=== PATIENT | female | born 2000 | race Two or more races ===

== ENCOUNTER 2024-06-16 10:26 | Emergency (ER) | payer OTHER, SELFPAY ==
[2024-06-16 10:50] VITALS: BP 141/83; PULSE 90; RESP 19; TEMP 36.9; O2SAT 97
--- NOTE | 2024-06-16 10:51 | PD.EDRME ---
Rapid Medical Screening Exam RME Arrival date/time: 06/16/24 10:26 Chief Complaint: Dental/Oral/Throat Time Seen by Provider: 06/16/24 10:39 Vital signs reviewed by provider: Yes RME Narrative: 24-year-old female presents for evaluation of persistent gingival bleeding x 24 hours. Patient was receiving a routine cleaning at her dentist office when she started bleeding at the gums above her right frontal tooth. Patient reports persistent oozing of blood since that time. She endorses some dizziness and palpitations today.
[2024-06-16] MEDS: ACETAMINOPHEN 325 MG TABLET 650 MG PO (11:21)
[2024-06-16 11:22] VITALS: BMI 30.7
[2024-06-16 11:22] LABS: Basophils % (Auto) 1 % (0-2.5); Eosinophils # (Auto) 0.2 Thou/mm3 (0.0-0.5); Eosinophils % (Auto) 3 % (0-10); Hematocrit 43.7 % (36.0-46.0); Hemoglobin 14.8 g/dL (12.0-16.0); Immature Granulocytes % (Auto) 0 % (0-0); Immature Granulocytes Auto 0.02 Thou/mm3 (0.00-0.00); Lymphocytes # (Auto) 3.5 Thou/mm3 (1.0-4.8); Lymphocytes % (Auto) 41 % (10-50); Mean Corpuscular HGB Conc 33.9 g/dl (31.0-37.0); Mean Corpuscular Volume 86 fL (80-100); Monocytes # (Auto) 0.6 Thou/mm3 (0.0-0.8); Monocytes % (Auto) 7 % (0-12); Neutrophils # (Auto) 4.2 Thou/mm3 (1.8-7.7); Neutrophils % (Auto) 50 % (37-80); Nucleated Red Blood Cell % 0 /100 WBC (0); Platelet Count 330 Thou/mm3 (140-440); RDW Standard Deviation 39.3 fL (36.4-46.3); Red Blood Count 5.11 Miln/mm3 (4.00-5.20); White Blood Count 8.6 Thou/mm3 (3.6-11.0)
[2024-06-16 11:24] LABS: HCG Qualitative,Urine Negative
[2024-06-16 11:29] LABS: Partial Thromboplastin Time 29.1 Seconds (22.0-36.0); Prothrombin Time 11.3 Seconds (9.0-12.2)
[2024-06-16 11:32] LABS: Alanine Aminotransferase 44 U/L (10-49); Albumin, Serum 4.9 gm/dL (3.5-5.0); Albumin/Globulin Ratio 1.6 (1.2-2.2); Alkaline Phosphatase 62 U/L (46-116); Anion Gap 9 (7-16); Aspartate Amino Transferase 22 U/L (0-34); BUN/Creatinine Ratio 14 Ratio (12-20); Bilirubin,Total 0.5 mg/dL (0.3-1.2); Blood Urea Nitrogen 10 mg/dL (9-23); Calcium 9.9 mg/dL (8.3-10.6); Calcium (Corrected) 9.9 mg/dL (8.5-10.1); Carbon Dioxide 20.8 mMol/L (20.0-31.0); Chloride 108 mMol/L (98-107); Creatinine (Component) 0.7 mg/dL (0.6-1.3); Glucose 93 mg/dL (74-106); Osmolality,Calculated 274 (275-295); Potassium 3.9 mMol/L (3.4-5.1); Sodium 138 mMol/L (136-145); Total Protein 7.9 gm/dL (5.7-8.2); eGFR > 60 See Note
[2024-06-16] MEDS: TRANEXAMIC ACID INJ 1,000 MG/10 ML VIAL 10 MG PO (14:09)
--- NOTE | 2024-06-16 14:50 | PD.EDDENTL ---
ED Dental RME/HPI General Chief complaint: Dental/Oral/Throat Stated complaint: dental bleeding. was told to come in for txa Time Seen by Provider: 06/16/24 10:39 Arrival date/time: 06/16/24 10:26 Limitations: no limitations RME / HPI RME / HPI Narrative: 24-year-old female presents for evaluation of persistent gingival bleeding x 24 hours. Patient was receiving a routine cleaning at her dentist office when she started bleeding at the gums above her right frontal tooth. Patient reports persistent oozing of blood since that time. She endorses mild dizziness and palpitations x3 hrs. patient is denies history of persistent postprocedural bleeding. Denies chest pain, nausea, vomiting, abdominal pain, headache. Onset (ago): hour(s) Duration: constant Relieving factors: nothing Exacerbating factors: nothing Treatment prior to arrival: none Related Data Allergies Allergy/AdvReac Type Severity Reaction Status Date / Time amoxicillin Allergy Rash Verified 06/16/24 10:27 Review of Systems Constitutional Constitutional: Denies chills, Denies fatigue, Denies fever(s), Denies headache(s) and Denies weakness Eyes Eyes: Denies blurry vision and Denies change in vision ENT Ears, Nose, Mouth, and Throat: Reports bleeding gums (Focal to frontal tooth.), Denies dental pain, Reports dizziness, Denies facial pain, Denies headache(s), Denies mouth pain and Denies neck pain Cardiovascular Cardiovascular: Denies chest pain and Denies dyspnea Respiratory Respiratory: Denies cough and Denies dyspnea Gastrointestinal Gastrointestinal: Denies nausea and Denies vomiting Musculoskeletal Musculoskeletal: Denies back pain, Denies myalgias and Denies neck pain Integumentary/Breasts Skin/Breast: Denies non-healing lesions Neurologic Neurologic: Reports dizziness, Denies headache(s) and Denies weakness Endocrine Endocrine: Denies fatigue Hematologic/Lymphatic Hematologic/Lymphatic: Reports as per HPI, Denies easy bleeding and Denies easy bruising Past Medical History Social History SMOKING STATUS: Never smoker ED Exam General Limitations: Present no limitations General appearance: Present alert and in no apparent distress Expanded Head Exam Head exam physical: Absent Mayers's sign Eye Eye exam: Present normal appearance and EOMI Expanded ENT Exam Mouth exam: Present tongue normal Teeth exam: Present other (Active oozing bleed at gumline tooth #9.); Absent dental tenderness # Throat exam: Present normal inspection Neck Neck exam: Present normal inspection and full ROM Chest Chest inspection: Present normal inspection and symmetric chest wall rise Respiratory Respiratory exam: Present normal lung sounds bilaterally; Absent respiratory distress or wheezes Cardiovascular Cardiovascular exam: Present regular rate, +S1 and +S2 Abdominal Exam Abdominal exam: Present soft; Absent distention Extremities Exam Extremities exam: Present normal inspection and full ROM Back Exam Back exam: Present normal inspection and full ROM Neurological Exam Neurological exam: Present alert Psychiatric Psychiatric exam: Present normal affect Skin Skin exam: Present warm, dry and normal color Course Quality Measures none Orders Category Date Time Status CBC Stat Lab 06/16/24 11:03 Completed CMP [Comprehensive Metabolic Panel] Stat Lab 06/16/24 11:03 Completed HCG Qualitative,Urine Stat Lab 06/16/24 11:03 Completed PT [Prothrombin Time with INR] Stat Lab 06/16/24 11:03 Completed PTT [Partial Thromboplastin Time] Stat Lab 06/16/24 11:03 Completed Type and Screen Stat Lab 06/16/24 11:03 Completed Acetaminophen Tab [Tylenol Tab] Med 06/16/24 10:50 Discontinued 650 mg PO X1 ONE Tranexamic Acid Inj Med 06/16/24 12:53 Discontinued 10 mg IV X1 ONE Tranexamic Acid Inj Med 06/16/24 14:05 Discontinued 10 mg PO X1 ONE Vital Signs Vital signs: Vital Signs Temperature 98.5 F 06/16/24 10:50 Pulse Rate 90 06/16/24 10:50 Respiratory Rate 19 06/16/24 10:50 Blood Pressure 141/83 H 06/16/24 10:50 Pulse Oximetry (%) 97 06/16/24 10:50 Oxygen Delivery Method Room Air 06/16/24 10:50 Pulse ox 97% on room air, within normal limits. Dental / Oral MDM Narrative MDM Narrative:: 24-year-old female presents with persistent gingival bleeding following a routine dental cleaning at 10 AM yesterday. Vital signs reassuring as patient is not tachycardic and oxygenating well on room air. Physical exam significant for oozing, bleed at the gingival line of tooth #9 without pulsatile consistency. Fortunately no anemia seen on CBC. Less concern for gross hemorrhage given patient is not tachycardic and stable in the department. Oral TXA was applied topically 4 x 2 minutes which patient tolerated well. Ultimately patient was discharged home with plan to follow-up with primary care tomorrow for reevaluation and further testing. I discussed with the patient need for possible outpatient workup for bleeding disorder. Patient was stable at time of discharge. Patient data External records reviewed:: [facility] previous records Clinical information provided by:: patient Social determinants that could affect healthcare access:: none Patient has the following chronic illnesses:: None reported. How is presenting disease/condition affected by chronic disease/condition?: no chronic disease Evaluation data The following diagnostics were reviewed and interpreted by me:: lab results Lab and/or radiology exams considered but not ordered:: Considered not ordered. Interpretation Summary: No anemia on CBC. PT and PTT within normal limits. Medications / Prescriptions Medications or Prescriptions considered but not ordered:: Rx given. Medication administrations:: Medication Administration History Discontinued Medications Acetaminophen (Acetaminophen 325 Mg Tablet) 650 mg PO X1 ONE Stop: 06/16/24 10:51 Last Admin: 06/16/24 11:21 Dose: 650 mg Documented By: ED Tranexamic Acid (Tranexamic Acid Inj 1,000 Mg/10 Ml Vial) 10 mg IV X1 ONE Stop: 06/16/24 12:54 Last Admin: 06/16/24 14:07 Dose: Not Given Documented By: DD Non-Admin Reason: Other, see note Comments: MED ORDER MODIFIED Tranexamic Acid (Tranexamic Acid Inj 1,000 Mg/10 Ml Vial) 10 mg PO X1 ONE Stop: 06/16/24 14:06 Last Admin: 06/16/24 14:09 Dose: 10 mg Documented By: DD Rx given. Consultations Consultation(s) initiated? (list below): No Diagnosis Dental Differential Diagnosis: dental caries, toothache, dental abscess, fracture of tooth and other (Gingival bleed.) Most likely diagnosis given after review of the tests above:: Gingival bleed. Admission Indicated Admission indicated?: not indicated Admission Request Was there a request for admission?: No Disposition Plan Disposition Plan: Discharge Discharge Attestation Discharge Attestation: The patient and all family members were given an opportunity to ask questions and understood the discharge instructions. Discharge instructions specifically effects, indications for sooner follow up or return to the emergency department, and the expected course of current diagnosis. Patient condition: Stable Discharge Plan Plan Patient Disposition: HOME (Self Care) Disposition Comment: stable Prescriptions/Referrals Referrals: Sabrina Shah PA-C [Primary Care Provider] - In 1 week Problem List Clinical Impression: Gingival bleeding Patient/Caregiver Discharge Instructions Other Activity Instructions:: Do not eat or drink for x 1 hour following TXA administration in the ED. Follow-up with primary care tomorrow regarding persistent bleeding of gums for further evaluation and workup. Return to the ED if your symptoms worsen or change. Print Language: Albanian Stand Alone Forms: Mouna Award Info., Patient Portal Info Letter PA/TRACEE Supervising Physician MAYITO/TRACEE Supervising Physician: Dr. Omalley
[2024-06-16 15:12] VITALS: BP 138/86; PULSE 84; RESP 20; TEMP 37; O2SAT 100
== END 2024-06-16 15:14 | disposition home or self-care (01) ==
PROVIDERS: Physician Assistant; Emergency Provider Emergency Medicine; PCP Physician Assistant
DX: K06.8 Other specified disorders of gingiva and edentulous alveolar ridge (principal)
CPT/HCPCS: 36415; 80053; 81025; 85025; 85610; 85730; 86850; 86900; 86901; 99283; J3490; A9270

== ENCOUNTER → 2024-06-18 | Outpatient (CLI) | payer OTHER, SELFPAY ==
--- NOTE | 2024-06-18 11:00 | XR_ITS ---
Examination: Breast ultrasound complete, bilateral Date and time of exam: June 18, 2024 at 1051 hours INDICATIONS: Patient states right breast lump lower outer quadrant left breast lump lower inner quadrant noticed beginning 3 months ago, family history breast cancer Technique: Real-time grayscale ultrasonographic imaging bilateral breasts, including all 4 quadrants as well as nipple retroareolar and axillary regions. Findings: Sonographic images right and left breast demonstrated no cystic or solid masses IMPRESSION: BI-RADS Category 1: Negative study
== END | disposition home or self-care (01) ==
LOC: CDIM 10:37
PROVIDERS: PCP Physician Assistant; Referring Provider Physician Assistant; Visit Provider Physician Assistant
DX: N63.20 Unspecified lump in the left breast, unspecified quadrant (principal); N63.10 Unspecified lump in the right breast, unspecified quadrant; Z80.3 Family history of malignant neoplasm of breast
CPT/HCPCS: 76641

== ENCOUNTER 2025-07-05 17:58 | Emergency (ER) | payer OTHER, SELFPAY ==
[2025-07-05 18:04] VITALS: BMI 32.3
[2025-07-05 18:15] VITALS: BP 134/87; PULSE 89; RESP 18; TEMP 36.8; O2SAT 98
--- NOTE | 2025-07-05 18:22 | EDNOTE_ITS ---
ED Abdominal Pain RME/HPI General Chief Complaint: Abdominal Pain Stated complaint: HIGH BP AT HOME; 19 WKS OB; UPPER MID ABD PAIN Time seen by provider: 07/05/25 18:29 Arrival date/time: 07/05/25 17:58 RME / HPI RME / HPI narrative: See [facility] for Dr. Garcia's HPI Documentation. Related Data Previous Rx's ?Medication ?Instructions ?Recorded cefdinir 300 mg capsule 300 mg PO BID #14 caps 07/05 ondansetron 4 mg disintegrating 4 mg PO TID PRN nausea and 07/05/25 tablet vomiting 30 days #30 tabs Allergies Allergy/AdvReac Type Severity Reaction Status Date / Time amoxicillin Allergy Rash Verified 07/05/25 18:07 Review of Systems Review of Systems Systems Reviewed: All systems reviewed, normal except as documented ED Exam Narrative Physical exam: See [facility] for Dr. Garcia's Physical Exam Documentation. Course Quality Measures none Orders Category Date Time Status EKG (ED ONLY) *Do not use* NOW Care 07/05/25 18:33 Completed Saline [Insert IV] NOW Care 07/05/25 18:32 Completed Straight [In and Out Catheter] X1 Care 07/05/25 18:32 Completed EKG (ED Only) Stat Exams 07/05/25 18:33 Draft US OB >= 14 weeks Fetus Stat Exams 07/05/25 18:33 Completed Amylase Stat Lab 07/05/25 18:55 Completed Beta HCG,Quantitative Stat Lab 07/05/25 18:55 Completed Bilirubin,Direct Stat Lab 07/05/25 18:55 Completed CBC Stat Lab 07/05/25 18:55 Completed CMP [Comprehensive Metabolic Panel] Stat Lab 07/05/25 18:55 Completed Lipase Stat Lab 07/05/25 18:55 Completed Magnesium Stat Lab 07/05/25 18:55 Completed TSH [Thyroid Stimulating Hormone] Stat Lab 07/05/25 18:55 Completed UA, C/S IF [Urinalysis, C/S if Indicated] Stat Lab 07/05/25 19:49 Completed Urine Culture Stat Lab 07/05/25 19:49 Received Ondansetron Inj [Zofran Inj] Med 07/05/25 18:32 Discontinued 4 mg IVP X1 ONE Ringers Lactated 1000 ml [Lactated Ringers] 1,000 ml Med 07/05/25 20:34 Discontinued IV 1,000 mls/hr Sodium Chloride 0.9% 1000 ml [Ns] 1,000 ml Med 07/05/25 18:32 Discontinued IV 999 mls/hr cefTRIAXone/D5w 1gm IV premix [Rocephin/D5w 1gm IV Med 07/05/25 20:33 Discontinued premix] 1 gm in 50 ml IV X1 Vital Signs Vital signs: Vital Signs Temperature 98.2 F 07/05/25 18:15 Pulse Rate 89 07/05/25 18:15 Respiratory Rate 18 07/05/25 18:15 Blood Pressure 134/87 H 07/05/25 18:15 Pulse Oximetry (%) 98 07/05/25 18:15 Oxygen Delivery Method Room Air 07/05/25 18:15 Abdominal Pain MDM MDM Narrative MDM Narrative:: This section includes all my notes and documentations, including HPI, PE, and ED course. Christopher Garcia MD HPI: 25 y/o EGA 19 weeks here with a few days of pelvic pain and decreased movement and headache and fatigue and malaise. And nausea with decreased oral intake. No vaginal bleeding. No other complaints. ROS: All negative except as documented in HPI. Physical Exam: General:? Alert and oriented.? No acute distress.?? Eyes:? Conjunctivae and lids clear.? EOMI.? PERRL. ENT:? No nasal congestion.? Pharynx normal.? Tympanic membrane normal bilaterally.??? Neck:? Supple.? Heart:? RRR.? Lungs:? No respiratory distress.? Good air movement.? No rhonchi, wheezing, rales.?? Abdomen:? Soft and nontender.? Normal bowel sounds.? No distension.? No rebound or guarding.?? Back:? No CVA tenderness.?? Legs:? No clubbing, cyanosis, edema.? Skin:? Warm and dry.?? Neuro:? Alert and oriented X 3.? Cranial Nerves II-XII grossly intact.? No peripheral motor deficits. I reviewed all diagnostic test results: My interpretation of the EKG: NSR (96 bpm) with no ST-T changes. My review of the US report is 19 3/7 week IUP. Blood tests remarkable for beta-hCG 12,296. UA remarkable for 1+ bacteria. At this point, diagnoses include: UTI Second Trimester Treatment here included: IVF Zofran 4 mg Rocephin 1 G IV She felt much better. Recommended outpatient care. Based on my best medical judgment, made decision no further evaluation or treatment indicated at this time. Patient understands and agrees to the discharge instructions customized and printed, see below. Discharge instructions from Dr. Garcia: 1. After evaluation, you have UTI (see attached handout). The baby is doing well. 2. Take cefdinir to kill the germs causing the infection. 3. For good hydration, increase oral fluid and maintain clear urine. If dark o r yellow, increase oral fluid. Zofran for nausea/vomiting. 4. See your customer solutions coordinator on 07/08/2025 for recheck. Ask to check the final urine culture results from today to make sure cefdinir doesn't need to be changed due to resistance. 5. Seek immediate medical care with worsening, fever, or with any concerns. Christopher Garcia MD Patient data External records reviewed:: [facility] previous records (Reviewed prior ED records from 06/16/24. Patient was seen for Gingival bleeding.) Clinical information provided by:: patient Social determinants that could affect healthcare access:: none Patient has the following chronic illnesses:: None reported How is presenting disease/condition affected by chronic disease/condition?: no chronic disease Evaluation data The following diagnostics were reviewed and interpreted by me:: lab results, radiology exam(s) and EKG tracing(s) (My interpretation of the EKG: NSR (96 bpm) with no ST-T changes. Christopher Garcia MD) Lab and/or radiology exams considered but not ordered:: None Interpretation Summary: I reviewed all diagnostic test results: My interpretation of the EKG: NSR (96 bpm) with no ST-T changes. My review of the US report is 19 3/7 week IUP. Blood tests remarkable for beta-hCG 12,296. UA remarkable for 1+ bacteria. Medications / Prescriptions Medications or Prescriptions considered but not ordered:: None Medication administrations:: Medication Administration History Discontinued Medications Sodium Chloride (Ns) 1,000 mls @ 999 mls/hr IV .Q1H1M ONE Stop: 07/05/25 19:32 Last Infusion: 07/05/25 20:40 Dose: Infused Documented By: Admin: 07/05/25 19:39 Dose: 999 mls/hr Documented By: MERARI Ceftriaxone Sodium/Dextrose (Rocephin/D5w 1gm Iv Premix) 1 gm in 50 mls @ 100 mls/hr IV X1 ONE Stop: 07/05/25 21:02 Last Infusion: 07/05/25 22:25 Dose: Infused Documented By: Admin: 07/05/25 21:37 Dose: 100 mls/hr Documented By: MERARI Lactated Ringer's (Lactated Ringers) 1,000 mls @ 1,000 mls/hr IV .Q1H ONE Stop: 07/05/25 21:33 Last Infusion: 07/05/25 22:37 Dose: Infused Documented By: Admin: 07/05/25 21:37 Dose: 1,000 mls/hr Documented By: MERARI Ondansetron HCl (Ondansetron Inj 2 Mg/Ml Inj 2 Ml) 4 mg IVP X1 ONE; Protocol Stop: 07/05/25 18:33 Last Admin: 07/05/25 19:40 Dose: 4 mg Documented By: MERARI Treatment here included: IVF Zofran 4 mg Rocephin 1 G IV Consultations Consultation(s) initiated? (list below): No Diagnosis Differential diagnosis abdominal pain: constipation, gastroenteritis, pancreatitis, small bowel obstruction and other (UTI, miscarriage) Most likely diagnosis given after review of the tests above:: UTI Second Trimester Admission Indicated Admission indicated?: not indicated Explain why admission is indicated or not indicated:: With significant improvement and no condition needing emergent intervention, there was no indication for admission. Admission Request Was there a request for admission?: No Disposition Plan Disposition Plan: Discharge Discharge Attestation Discharge Attestation: The patient and all family members were given an opportunity to ask questions and understood the discharge instructions. Discharge instructions specifically effects, indications for sooner follow up or return to the emergency department, and the expected course of current diagnosis. Patient condition: Stable Discharge Plan Plan Patient Disposition: HOME (Self Care) Prescriptions/Referrals Prescriptions/Med Rec: New ondansetron 4 mg tablet,disintegrating 4 mg PO TID PRN (Reason: nausea and vomiting) 30 Days Qty: 30 0RF cefdinir 300 mg capsule 300 mg PO BID Qty: 14 0RF Referrals: No Primary/Family,Physician [Primary Care Provider] - In 1 week Problem List Clinical Impression: Second trimester , UTI (urinary tract infection) Patient/Caregiver Discharge Instructions Discharge Activity: activity as tolerated Education Materials: Preg 2nd Trimester, ED CYSTITIS Female Adult Additional Instructions: Discharge instructions from Dr. Garcia: 1. After evaluation, you have UTI (see attached handout). The baby is doing well. 2. Take cefdinir to kill the germs causing the infection. 3. For good hydration, increase oral fluid and maintain clear urine. If dark or yellow, increase oral fluid. Zofran for nausea/vomiting. 4. See your customer solutions coordinator on 07/08/2025 for recheck. Ask to check the final urine culture results from today to make sure cefdinir doesn't need to be changed due to resistance. 5. Seek immediate medical care with worsening, fever, or with any concerns. Print Language: Amharic Stand Alone Forms: Mouna Award Info., Patient Portal Info Letter
--- NOTE | 2025-07-05 18:33 | EKG_ITS ---
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
--- NOTE | 2025-07-05 18:33 | XR_ITS ---
Examination: Complete OB ultrasound greater than 14 weeks Date and time of exam: July 05, 2025, 2054 hours INDICATIONS: Pelvic pain today Findings: Viable intrauterine single fetus with single amniotic sac presentation variable Cardiac motion 149 bpm Placenta posterior grade 1 Umbilical cord insertion seen Amniotic fluid index 11.9 cm spine posterior Cervix 3.6 cm Ovaries obscured by patient movement. Composite estimated gestational age based on BPD, head circumference, abdominal circumference, femur length is 19 weeks 3 days Estimated weight 2903 g. Survey of intracranial anatomy, spinal anatomy, abdominal anatomy, four-chamber heart performed with no abnormalities identified. Impression: Viable intrauterine gestation in variable presentation Estimated gestational age 19 weeks 3 days.
[2025-07-05 19:21] LABS: Basophils # (Auto) 0.0 Thou/mm3 (0.0-0.2); Basophils % (Auto) 0 % (0-2.5); Eosinophils # (Auto) 0.3 Thou/mm3 (0.0-0.5); Eosinophils % (Auto) 3 % (0-10); Hematocrit 37.7 % (36.0-46.0); Hemoglobin 13.1 g/dL (12.0-16.0); Immature Granulocytes Auto 0.05 Thou/mm3 (0.00-0.00); Lymphocytes # (Auto) 2.4 Thou/mm3 (1.0-4.8); Lymphocytes % (Auto) 22 % (10-50); Mean Corpuscular HGB Conc 34.7 g/dl (31.0-37.0); Mean Corpuscular Hemoglobin 29.5 pg (25.0-35.0); Mean Corpuscular Volume 85 fL (80-100); Monocytes # (Auto) 0.8 Thou/mm3 (0.0-0.8); Monocytes % (Auto) 7 % (0-12); Neutrophils # (Auto) 7.3 Thou/mm3 (1.8-7.7); Neutrophils % (Auto) 67 % (37-80); Nucleated Red Blood Cell # 0.00 Thou/mm3 (0.00-0.00); Nucleated Red Blood Cell % 0 /100 WBC (0); Platelet Count 259 Thou/mm3 (140-440); RDW Standard Deviation 38.8 fL (36.4-46.3); Red Blood Count 4.44 Miln/mm3 (4.00-5.20); White Blood Count 10.9 Thou/mm3 (3.6-11.0)
[2025-07-05 19:25] VITALS: BP 131/88; PULSE 98; RESP 18; TEMP 37.1; O2SAT 95
[2025-07-05] MEDS: SODIUM CHLORIDE 0.9% 1000 ML 1,000 ML 999 ML IV (19:39)
[2025-07-05] MEDS: ONDANSETRON INJ 2 MG/ML INJ 2 ML 4 MG IVP (19:40)
[2025-07-05 19:55] LABS: Collection Type, Urine Clean Catch
[2025-07-05 19:55] LABS: Alanine Aminotransferase 16 U/L (10-49); Albumin, Serum 4.3 gm/dL (3.5-5.0); Albumin/Globulin Ratio 1.6 (1.2-2.2); Alkaline Phosphatase 61 U/L (46-116); Amylase 47 U/L (30-118); Anion Gap 9 (7-16); Aspartate Amino Transferase 15 U/L (0-34); BUN/Creatinine Ratio 13 Ratio (12-20); Bilirubin,Direct < 0.1 mg/dL (0.0-0.3); Bilirubin,Total 0.2 mg/dL (0.3-1.2); Blood Urea Nitrogen 8 mg/dL (9-23); Calcium 9.2 mg/dL (8.3-10.6); Calcium (Corrected) 9.2 mg/dL (8.5-10.1); Carbon Dioxide 21.7 mMol/L (20.0-31.0); Chloride 108 mMol/L (98-107); Creatinine (Component) 0.6 mg/dL (0.6-1.3); Estimated Creatinine Clearance 162.6 mL/min (>60); Globulin 2.7 gm/dL (2.3-3.5); Glucose 88 mg/dL (74-106); Lipase 29 U/L (12-53); Magnesium 1.8 mg/dL (1.6-2.6); Osmolality,Calculated 274 (275-295); Potassium 3.6 mMol/L (3.4-5.1); Sodium 139 mMol/L (136-145); Thyroid Stimulating Hormone 2.42 uIU/mL (0.55-4.78); Total Protein 7.0 gm/dL (5.7-8.2); eGFR > 60 See Note
[2025-07-05 20:13] LABS: Bacteria,Urine 1+; Bilirubin,Urine Negative (Negative); Blood,Urine Negative (Negative); Clarity,Urine Clear (Clear/Hazy); Color,Urine Colorless (Lt Yel-Yel); Glucose, Urine Negative (Negative); Ketones,Urine Negative (Negative); Leukocyte Esterase,Urine Negative (Negative); Nitrite,Urine Negative (Negative); PH,Urine 6.5 (5.0-7.0); Protein,Urine Negative (Neg - Trace); RBC,Urine 1 /hpf (0-3); Specific Gravity,Urine 1.010 (1.001-1.035); Squamous Epithelial Cell,Urine 2 /hpf (0-5); Urobilinogen,Urine Negative mg/dL (0.0-1.0); WBC,Urine 1 /hpf (0-5)
[2025-07-05 20:18] LABS: Culture Indicated,Urine Yes
[2025-07-05 20:29] LABS: Beta HCG,Quantitative 12296 mIU/mL (<5.0)
[2025-07-05 21:21] VITALS: BP 95/62; PULSE 89; RESP 18; TEMP 37; O2SAT 96
[2025-07-05] MEDS: cefTRIAXone/D5w 1gm IV premix 1 GM/50 ML BAG IV (21:37)
[2025-07-05] MEDS: RINGERS LACTATED 1000 ML 1,000 ML IV (21:37)
[2025-07-05 22:53] VITALS: BP 113/79; PULSE 84; RESP 18; O2SAT 97
== END 2025-07-05 22:54 | disposition home or self-care (01) ==
PROVIDERS: Emergency Provider Emergency Medicine
DX: O23.42 Unspecified infection of urinary tract in pregnancy, second trimester (principal); O21.9 Vomiting of pregnancy, unspecified; Z3A.19 19 weeks gestation of pregnancy
CPT/HCPCS: 36415; 76805; 80053; 81001; 82150; 82248; 83690; 83735; 84443; 84702; 85025; 87086; 93005; 96361; 96365; 96375; 99284; J0696; J2405; J7030; J7120